=== PATIENT | female | born 1990 | race American Indian/Alaskan Native ===

== ENCOUNTER 2024-04-25 18:46 | Emergency (ER) | payer MEDICAID, SELFPAY ==
[2024-04-25 18:47] VITALS: BMI 48.0
[2024-04-25 18:54] VITALS: BP 152/98; PULSE 82; RESP 18; TEMP 36.8; O2SAT 99
--- NOTE | 2024-04-25 20:29 | PD.EDRME ---
Rapid Medical Screening Exam RME Arrival date/time: 04/25/24 18:46 33 year old female present to ED for c/o flank pain for 2 weeks I have greeted and performed a focused initial assessment of this patient. A comprehensive ED assessment and evaluation of the patient, analysis of all test results, and completion of the medical decision making process will be conducted by additional ED providers. Chief Complaint: Back Pain/Injury Time Seen by Provider: 04/25/24 18:56 Vital signs: Vital Signs Temperature 98.2 F 04/25/24 18:54 Pulse Rate 82 04/25/24 18:54 Respiratory Rate 18 04/25/24 18:54 Blood Pressure 152/98 H 04/25/24 18:54 Pulse Oximetry (%) 99 04/25/24 18:54 Oxygen Delivery Method Room Air 04/25/24 18:54
[2024-04-25 21:02] LABS: Basophils # (Auto) 0.1 Thou/mm3 (0.0-0.2); Basophils % (Auto) 1 % (0-2.5); Eosinophils # (Auto) 0.2 Thou/mm3 (0.0-0.5); Eosinophils % (Auto) 2 % (0-10); Hematocrit 41.1 % (36.0-46.0); Hemoglobin 13.3 g/dL (12.0-16.0); Immature Granulocytes % (Auto) 0 % (0-0); Immature Granulocytes Auto 0.03 Thou/mm3 (0.00-0.00); Lymphocytes # (Auto) 2.6 Thou/mm3 (1.0-4.8); Lymphocytes % (Auto) 29 % (10-50); Mean Corpuscular HGB Conc 32.4 g/dl (31.0-37.0); Mean Corpuscular Hemoglobin 25.6 pg (25.0-35.0); Mean Corpuscular Volume 79 fL (80-100); Monocytes # (Auto) 0.6 Thou/mm3 (0.0-0.8); Monocytes % (Auto) 6 % (0-12); Neutrophils # (Auto) 5.5 Thou/mm3 (1.8-7.7); Neutrophils % (Auto) 62 % (37-80); Nucleated Red Blood Cell % 0 /100 WBC (0); Platelet Count 310 Thou/mm3 (140-440); RDW Standard Deviation 39.8 fL (36.4-46.3)
[2024-04-25 21:08] LABS: Alanine Aminotransferase 14 U/L (10-49); Albumin, Serum 4.7 gm/dL (3.5-5.0); Anion Gap 8 (7-16); Aspartate Amino Transferase 15 U/L (0-34); BUN/Creatinine Ratio 21 Ratio (12-20); Bilirubin,Total 0.2 mg/dL (0.3-1.2); Blood Urea Nitrogen 17 mg/dL (9-23); Calcium 9.5 mg/dL (8.3-10.6); Calcium (Corrected) 9.5 mg/dL (8.5-10.1); Carbon Dioxide 27.1 mMol/L (20.0-31.0); Chloride 105 mMol/L (98-107); Creatinine (Component) 0.8 mg/dL (0.6-1.3); Estimated Creatinine Clearance 130.8 mL/min (>60); Globulin 2.9 gm/dL (2.3-3.5); Glucose 97 mg/dL (74-106); Osmolality,Calculated 280 (275-295); Potassium 3.8 mMol/L (3.4-5.1); Sodium 140 mMol/L (136-145); Total Protein 7.6 gm/dL (5.7-8.2); eGFR > 60 See Note
[2024-04-25 21:09] LABS: Albumin/Globulin Ratio 1.6 (1.2-2.2); Alkaline Phosphatase 76 U/L (46-116); Lipase 43 U/L (12-53)
[2024-04-25 21:23] LABS: HCG,Qualitative Serum Negative
[2024-04-25 21:30] LABS: Collection Type, Urine Voided
[2024-04-25 21:37] LABS: Bilirubin,Urine Negative (Negative); Blood,Urine Negative (Negative); Clarity,Urine Clear (Clear/Hazy); Color,Urine Yellow (Lt Yel-Yel); Glucose, Urine Negative (Negative); Ketones,Urine Negative (Negative); Leukocyte Esterase,Urine Negative (Negative); Nitrite,Urine Negative (Negative); Protein,Urine Trace (Neg - Trace); RBC,Urine 3 /hpf (0-3); Specific Gravity,Urine 1.034 (1.001-1.035); Squamous Epithelial Cell,Urine 8 /hpf (0-5); Urobilinogen,Urine Negative mg/dL (0.0-1.0); WBC,Urine 4 /hpf (0-5)
--- NOTE | 2024-04-25 22:35 | XR_ITS ---
Examination: CT abdomen and pelvis without contrast. Coronal 3-D reconstructions. Sagittal 2-D reconstructions. Date and time of exam:April 25, 2024 11:29 PM INDICATIONS: Right-sided back and flank pain beginning 2 weeks ago CTDI: vol (mGy): 20.6 DLP: (mGycm): 1223 Technique: Axial images of the abdomen have been obtained, 3 mm slice thickness Intravenous contrast material has not been administered. Low dose protocols were performed. One or more of the following dose reduction techniques were used; automated exposure control, adjustment of the mA and/or KV according to patient size, use of iterative reconstruction technique. Findings: No focal liver or splenic lesion Splenule No gallstones No pancreatic mass No renal or ureteral calculi, no hydronephrosis Aorta normal size No bowel obstruction Small fat-containing umbilical hernia Normal appendix No diverticulitis Anteverted uterus, 20 mm left adnexal cyst No bladder mass or bladder calculi Intact osseous structures IMPRESSION: No renal or ureteral calculi, no hydronephrosis Normal appendix
[2024-04-26 02:27] VITALS: BP 141/90; PULSE 88; RESP 18; TEMP 37.1; O2SAT 98
--- NOTE | 2024-04-26 03:25 | PRELIM_ITS ---
CT scan of the abdomen and pelvis without intravenous contrast (axial sections with sagittal and lambert nal reformats) April 25, 2024 2329 hours Clinical History: flank pain for 2 weeks. r/o kidney stone s Comparison: No prior study is available for comparison. Findings:The lung bases are clear.There is a 1.4 cm splenuleThe liver, gallbladder, pancreas,kidneys and adrenals are unremarkable on this nonco ntrast study.No evidence of bowel obstruction. The appendix is within normal limits (axial images [[id number]]). There is no mesenteric or retroperitoneal adenopathy.A small fat-containing umbilical he rnia is present. The urinary bladder is incompletely distended at the time of the examination. There is no free fluid or free air.There is a left ovarian follicle, measuring 2.5 cmOsseous degenerative c hanges are noted.Impression:No evidence of renal/ureteric calculus or hydroureteronephrosis. Other fi ndings as described above. Report Electronically Signed By: Vania Pritchett 04/26/2024 3:24:19 AM [EST]
[2024-04-26 03:41] VITALS: BP 125/84; PULSE 73; RESP 18; O2SAT 97
--- NOTE | 2024-04-26 03:57 | EDNOTE_ITS ---
ED Back Injury Pain RME/HPI General Chief Complaint: Back Pain/Injury Stated Complaint: RIGHT SIDE BACK PAINFOR 2 WEEKS Time Seen by Provider: 04/25/24 18:56 Arrival date/time: 04/25/24 18:46 Limitations: no limitations RME / HPI RME / HPI Narrative: 04/25/24 18:46 33 year old female present to ED for c/o flank pain for 2 weeks I have greeted and performed a focused initial assessment of this patient. A comprehensive ED assessment and evaluation of the patient, analysis of all test results, and completion of the medical decision making process will be conducted by additional ED providers. --------- Dr. Curtis's Main ED Evaluation: 33yo female presents to the ED for a chief complaint of right-sided back pain x 2 weeks. Patient states her pain has been worsening for the last 2 days, reporting she took Tylenol without any alleviation of symptoms, so she came in for evaluation. 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 She denies any fever, chills, UTI symptoms or any other associated symptoms. PSH includes . Related Data Previous Rx's ?Medication ?Instructions ?Recorded meclizine 25 mg tablet 25 mg PO BID PRN dizziness #20 tabs 06/21/22 metoclopramide HCl 10 mg tablet 10 mg PO QID PRN nausea and 06/21/22 (Reglan) vomiting #30 tabs meclizine 25 mg tablet 25 mg PO QID PRN dizziness #20 tabs 06/24/22 prochlorperazine 25 mg rectal 25 mg [place] Q12H PRN nausea and 06/24/22 suppository (Compazine) vomiting #12 ea albuterol sulfate 90 mcg/actuation 2 puff inhalation Q6H PRN 04/04/23 aerosol inhaler (Ventolin HFA) shortness of breath or wheezing #8.5 grams diazepam 2 mg tablet (Valium) 2 mg PO BID PRN muscle spasm #4 04/26/24 tabs Allergies Allergy/AdvReac Type Severity Reaction Status Date / Time dextromethorphan Allergy Severe Hives Verified 04/25/24 18:49 [From Theraflu Daytime Severe Cold] diphenhydramine Allergy Severe Hives Verified 04/25/24 18:49 [From Theraflu Day-Night Cold,Cough] guaifenesin Allergy Severe Hives Verified 04/25/24 18:49 [From Theraflu Max-D Severe Cold-Flu] pheniramine Allergy Severe Hives Verified 04/25/24 18:49 [From Theraflu Sinus and Cold] phenylephrine Allergy Severe Hives Verified 04/25/24 18:49 [From Theraflu Sinus and Cold] pseudoephedrine Allergy Severe Hives Verified 04/25/24 18:49 [From Theraflu Daytime Severe Cold] Review of Systems Review of Systems Systems Reviewed: All systems reviewed, normal except as documented Past Medical History Past Medical History NEUROLOGIC: Negative Neurological Disorders or Seizures CARDIAC: Negative Cardiac Disorders or Congestive Heart Failure RESPIRATORY: Negative Chronic Obstructive Pulmonary Disease (COPD), Asthma or Bronchitis GASTROINTESTINAL: Negative Gastrointestinal Disorders GENITOURINARY: Negative Genitourinary Disorders or Renal Disease REPRODUCTIVE: Negative Previous Pregnancies MUSCULOSKELETAL: Positive Musculoskeletal Disorders ENDOCRINE: Negative Endocrine Disorders, Diabetes Mellitus Type 1 or Diabetes Mellitus Type 2 HEMATOLOGIC: Negative Anemia PSYCHO/SOCIAL: Positive Anxiety; Negative Depression OTHER HISTORY: Positive Hospitalization, Shingles and Chicken Pox; Negative Anesthesia Reactions, Measles, Mumps or Cancer Surgical History SURGICAL: Positive Tubal Ligation and Section Social History SMOKING STATUS: Never smoker ED Exam General Limitations: Present no limitations General appearance: Present alert and in no apparent distress Head Head exam: Present atraumatic Eye Eye exam: Present normal appearance, PERRL and EOMI ENT ENT exam: Present normal exam, normal oropharynx and mucous membranes moist Neck Neck exam: Present normal inspection, full ROM and trachea midline Chest Chest inspection: Present normal inspection and symmetric chest wall rise Respiratory Respiratory exam: Present normal lung sounds bilaterally Cardiovascular Cardiovascular exam: Present regular rate, normal rhythm and normal heart sounds Abdominal Exam Abdominal exam: Present soft and normal bowel sounds Extremities Exam Extremities exam: Present normal inspection and full ROM Back Exam Back exam: Present normal inspection, full ROM and muscle spasm (right paraspinal area); Absent CVA tenderness (R) or CVA tenderness (L) Neurological Exam Neurological exam: Present alert, oriented X3 and CN II-XII intact Psychiatric Psychiatric exam: Present normal affect and normal mood Skin Skin exam: Present warm, dry, intact and normal color Course Quality Measures none Orders Category Date Time Status CT abdomen pelvis wo con Stat Exams 04/25/24 22:35 Taken CBC Stat Lab 04/25/24 20:40 Completed CMP [Comprehensive Metabolic Panel] Stat Lab 04/25/24 20:40 Completed HCG,Qualitative Serum Stat Lab 04/25/24 20:40 Completed Lipase Stat Lab 04/25/24 20:40 Completed UA [Urinalysis] Stat Lab 04/25/24 21:16 Completed Urine Culture Stat Lab 04/25/24 21:16 Received Vital Signs Vital signs: Vital Signs Temperature 98.2 F 04/25/24 18:54 Pulse Rate 82 04/25/24 18:54 Respiratory Rate 18 04/25/24 18:54 Blood Pressure 152/98 H 04/25/24 18:54 Pulse Oximetry (%) 99 04/25/24 18:54 Oxygen Delivery Method Room Air 04/25/24 18:54 Back Pain / Injury Patient data External records reviewed:: [facility] previous records (Per chart review, patient has no relevant previous ED visits.) Clinical information provided by:: patient Social determinants that could affect healthcare access:: none Patient has the following chronic illnesses:: none How is presenting disease/condition affected by chronic disease/condition?: no chronic disease Evaluation data The following diagnostics were reviewed and interpreted by me:: lab results and radiology exam(s) Lab and/or radiology exams considered but not ordered:: none Interpretation Summary: Labs are unremarkable. No sign of UTI at this time. ---- [facility] Preliminary Report Draft Patient: DAMON MATIAS. Record#: [id number] Birthdate: 1990 Age/Sex: 33 / F Location: [facility] Attending Dr: Ordering Physician: Date of Service: Procedure(s): Accession Number(s): cc: ~ CT scan of the abdomen and pelvis without intravenous contrast (axial sections with sagittal and coronal reformats) April 25, 2024 2329 hours Clinical History: flank pain for 2 weeks. r/o kidney stones Comparison: No prior study is available for comparison. Findings: The lung bases are clear. There is a 1.4 cm splenule The liver, gallbladder, pancreas,kidneys and adrenals are unremarkable on this noncontrast study. No evidence of bowel obstruction. The appendix is within normal limits (axial images [[id number]]). There is no mesenteric or retroperitoneal adenopathy. A small fat-containing umbilical hernia is present. The urinary bladder is incompletely distended at the time of the examination. There is no free fluid or free air. There is a left ovarian follicle, measuring 2.5 cm Osseous degenerative changes are noted. Impression: No evidence of renal/ureteric calculus or hydroureteronephrosis. Other findings as described above. Report Electronically Signed By: Vania Pritchett 04/26/2024 3:24:19 AM [EST] Medications / Prescriptions Medications or Prescriptions considered but not ordered:: none Medication administrations:: see above, if any Consultations Consultation(s) initiated? (list below): No Diagnosis Differential diagnosis back pain/injury: sciatica, pyelonephritis and other (UTI, cystitis, muscle spasm) Most likely diagnosis given after review of the tests above:: see below Admission Indicated Admission indicated?: not indicated Admission Request Was there a request for admission?: No Disposition Plan Disposition Plan: Discharge Discharge Attestation Discharge Attestation: The patient and all family members were given an opportunity to ask questions and understood the discharge instructions. Discharge instructions specifically effects, indications for sooner follow up or return to the emergency department, and the expected course of current diagnosis. Patient condition: Stable Discharge Plan Plan Patient Disposition: HOME (Self Care) Patient condition on transfer: Stable Prescriptions/Referrals Prescriptions/Med Rec: New diazepam [Valium] 2 mg tablet 2 mg PO BID PRN (Reason: muscle spasm) Qty: 4 0RF No Action meclizine 25 mg tablet 25 mg PO BID PRN (Reason: dizziness) Qty: 20 0RF metoclopramide HCl [Reglan] 10 mg tablet 10 mg PO QID PRN (Reason: nausea and vomiting) Qty: 30 0RF meclizine 25 mg tablet 25 mg PO QID MDD 4 PRN (Reason: dizziness) Qty: 20 0RF prochlorperazine [Compazine] 25 mg suppository 25 mg [place] Q12H PRN (Reason: nausea and vomiting) Qty: 12 0RF albuterol sulfate [Ventolin HFA] 90 mcg/actuation HFA aerosol inhaler 2 puff inhalation Q6H PRN (Reason: shortness of breath or wheezing) Qty: 8.5 0RF Referrals: No Primary/Family,Physician [Primary Care Provider] - In 1 week Problem List Clinical Impression: Muscle spasm Patient/Caregiver Discharge Instructions Other Activity Instructions:: Please avoid heavy lifting over the next few days since you are having some back pain. Education Materials: Muscle Spasm, ED Muscle Spasm Additional Instructions: No alcohol, mechanical machinery work and/or getting on a ladder, swimming alone while on the Valium. Return to emergency department if worsening symptoms, weakness or numbness, or any other concerns Print Language: Maori Stand Alone Forms: Crystal Award Info., Patient Portal Info Letter
[2024-04-26] MEDS: KETOROLAC INJ 60 MG/2 ML VIAL 30 MG IM (04:17)
== END 2024-04-26 04:20 | disposition home or self-care (01) ==
PROVIDERS: Physician Assistant; Emergency Provider Emergency Medicine
DX: M62.838 Other muscle spasm (principal); R10.9 Unspecified abdominal pain
CPT/HCPCS: 36415; 74176; 80053; 81001; 83690; 84703; 85025; 87086; 96372; 99284; J1885

== ENCOUNTER → 2024-07-30 | Outpatient (BNVA) | payer MEDICAID, SELFPAY | END | disposition home or self-care (01) | PROVIDERS: PCP Nurse Practitioner Primary Care; Referring Provider Nurse Practitioner Primary Care; Visit Provider Nurse Practitioner Primary Care | DX: Z76.89 Persons encountering health services in other specified circumstances (principal); H93.8X1 Other specified disorders of right ear | CPT/HCPCS: 99203 ==

== ENCOUNTER → 2024-08-20 | Outpatient (BNVA) | payer MEDICAID, SELFPAY | END | disposition home or self-care (01) | PROVIDERS: PCP Nurse Practitioner Primary Care; Referring Provider Nurse Practitioner Primary Care; Visit Provider Nurse Practitioner Primary Care | DX: Z00.01 Encounter for general adult medical examination with abnormal findings (principal); E66.813 Obesity, class 3; Z68.41 Body mass index [BMI] 40.0-44.9, adult; Z13.220 Encounter for screening for lipoid disorders; Z76.89 Persons encountering health services in other specified circumstances; Z11.3 Encounter for screening for infections with a predominantly sexual mode of transmission; Z13.1 Encounter for screening for diabetes mellitus; Z23 Encounter for immunization | CPT/HCPCS: 90471; 90715; 99215 ==

== ENCOUNTER → 2024-08-27 | Outpatient (BNVA) | payer MEDICAID, SELFPAY | END | disposition home or self-care (01) | PROVIDERS: PCP Nurse Practitioner Primary Care; Referring Provider Nurse Practitioner Primary Care; Visit Provider Nurse Practitioner Primary Care | DX: Z71.2 Person consulting for explanation of examination or test findings (principal); R82.90 Unspecified abnormal findings in urine; E78.2 Mixed hyperlipidemia; R79.89 Other specified abnormal findings of blood chemistry | CPT/HCPCS: 99213 ==

== ENCOUNTER → 2025-01-02 | Outpatient (BNVA) | payer MEDICAID, SELFPAY | END | disposition home or self-care (01) | PROVIDERS: PCP Nurse Practitioner Family; Referring Provider Nurse Practitioner Family; Visit Provider Nurse Practitioner Family | DX: R42 Dizziness and giddiness (principal); R11.2 Nausea with vomiting, unspecified | CPT/HCPCS: 99213; Q0162 ==

== ENCOUNTER → 2025-01-09 | Outpatient (BNVA) | payer MEDICAID, SELFPAY | END | disposition home or self-care (01) | PROVIDERS: PCP Nurse Practitioner Family; Referring Provider Nurse Practitioner Family; Visit Provider Nurse Practitioner Family | DX: R42 Dizziness and giddiness (principal); R11.2 Nausea with vomiting, unspecified; E66.813 Obesity, class 3; Z68.41 Body mass index [BMI] 40.0-44.9, adult; E78.2 Mixed hyperlipidemia | CPT/HCPCS: 99214 ==

== ENCOUNTER → 2025-01-15 | Outpatient (BNVA) | payer MEDICAID, SELFPAY | END | disposition home or self-care (01) | PROVIDERS: PCP Nurse Practitioner Family; Referring Provider Nurse Practitioner Family; Visit Provider Nurse Practitioner Family | DX: U07.1 COVID-19 (principal) | CPT/HCPCS: 87804; 87811; 99213 ==

== ENCOUNTER → 2025-01-17 | Outpatient (BNVA) | payer MEDICAID, SELFPAY | END | disposition home or self-care (01) | PROVIDERS: PCP Nurse Practitioner Primary Care; Referring Provider Nurse Practitioner Primary Care; Visit Provider Nurse Practitioner Primary Care | DX: U07.1 COVID-19 (principal); Z71.2 Person consulting for explanation of examination or test findings; E78.2 Mixed hyperlipidemia; R42 Dizziness and giddiness | CPT/HCPCS: 99212; G0463 ==

== ENCOUNTER → 2025-01-29 | Outpatient (BNVA) | payer MEDICAID, SELFPAY | END | disposition home or self-care (01) | PROVIDERS: PCP Nurse Practitioner Primary Care; Referring Provider Nurse Practitioner Primary Care; Visit Provider Nurse Practitioner Primary Care | DX: R42 Dizziness and giddiness (principal); R51.9 Headache, unspecified | CPT/HCPCS: 99213 ==

== ENCOUNTER → 2025-02-26 | Outpatient (BNVA) | payer MEDICAID, SELFPAY | END | disposition home or self-care (01) | PROVIDERS: PCP Nurse Practitioner Primary Care; Referring Provider Nurse Practitioner Primary Care; Visit Provider Nurse Practitioner Primary Care | DX: R42 Dizziness and giddiness (principal); R51.9 Headache, unspecified; R68.82 Decreased libido; N92.0 Excessive and frequent menstruation with regular cycle | CPT/HCPCS: 99214 ==

== ENCOUNTER → 2025-03-05 | Outpatient (BNVA) | payer MEDICAID, SELFPAY | END | disposition home or self-care (01) | PROVIDERS: PCP Nurse Practitioner Primary Care; Referring Provider Nurse Practitioner Primary Care; Visit Provider Nurse Practitioner Primary Care | DX: Z71.2 Person consulting for explanation of examination or test findings (principal) ==

== ENCOUNTER → 2025-04-15 | Outpatient (CLI) | payer MEDICAID, SELFPAY ==
--- NOTE | 2025-04-15 15:00 | XR_ITS ---
Examination: CT brain head without contrast. 2-D sagittal coronal reconstructions Date and time of exam: April 15, 2025, 0310 hours INDICATION: Dizziness headaches intermittent 1 year COMPARISON: June 21, 2022 CTDI: vol (mGy): 48.7 DLP: (mGycm): 1049 Technique: Multiple CT axial sections of the brain have been obtained, 5 mm slice thickness. Contrast has not been administered. 2-D sagittal, coronal reconstructions have been obtained Low dose protocols were performed. One or more of the following dose reduction techniques were used; automated exposure control, adjustment of the mA and/or KV according to patient size, use of iterative reconstruction technique. Findings: No significant ventricular enlargement. Intra-axial or extra-axial hemorrhage density is not seen. No mass effect or midline shift Basal cisterns are not remarkable. Fourth ventricle is midline. Cranial vault intact. Impression: Negative for acute hemorrhage, mass effect or midline shift
== END | disposition home or self-care (01) ==
LOC: CCTX 14:54
PROVIDERS: PCP Nurse Practitioner Family; Referring Provider Nurse Practitioner Family; Visit Provider Nurse Practitioner Family
DX: R42 Dizziness and giddiness (principal)
CPT/HCPCS: 70450